=== PATIENT | female | born 1990 | race Two or more races ===

== ENCOUNTER 2023-06-19 21:22 | Inpatient (IN) | payer OTHER ==
[~2023-06-19] VITALS: Ht 165.1 cm; Wt 94.8 kg
[2023-06-19] MEDS ORDERED: AMPICILLIN SODIUM 2,000 MG VIAL IV STA (21:53)
[2023-06-19] MEDS ORDERED: PRENATAL TABLE1 EAC1 PO (22:02)
[2023-06-20] MEDS ORDERED: AMPICILLIN SODIUM 1,000 MG VIAL IV SCH (01:00)
[2023-06-20] MEDS ORDERED: OXYTOCIN 20 UNITS/500ML RL PIGGYBAG IV ONE (06:18)
[2023-06-20] MEDS ORDERED: OXYTOCIN 500 ML IV SCH (07:00)
[2023-06-20] MEDS ORDERED: RINGERS SOLUTION,LACTATED 1,000 ML IV SCH (07:00)
[2023-06-20] MEDS ORDERED: PROMETHAZINE HCL 25 MG/ML AMPUL IV STA (07:41)
[2023-06-20] MEDS ORDERED: MEPERIDINE HCL/PF 50 MG/ML VIAL IV STA (07:41)
[2023-06-20] MEDS ORDERED: PROMETHAZINE HCL 25 MG/ML AMPUL IV ONE (12:15)
[2023-06-20] MEDS ORDERED: MEPERIDINE HCL/PF 50 MG/ML VIAL IV ONE (12:15)
[2023-06-20] MEDS ORDERED: CARBOPROST TROMETHAMINE 250 MCG/ML AMPUL IM ONE ×2 (17:59→22:45)
[2023-06-20] MEDS ORDERED: METHYLERGONOVINE MALEATE 0.2 MG/ML AMPUL ONE (17:59)
[2023-06-20] MEDS ORDERED: ACETAMINOPHEN 325 MG TABLET PO PRN (18:45)
[2023-06-20] MEDS ORDERED: OxyCODONE HCL/APAP UD (PERCOCET) PO PRN (18:45)
[2023-06-20] MEDS ORDERED: OXYTOCIN 20 UNITS/1000ML RL PIGGYBAG IV ONE (18:45)
[2023-06-20] MEDS ORDERED: CHLORHEXIDINE GLUCONATE 120 ML BOTTLE TOP ONE (18:45)
[2023-06-20] MEDS ORDERED: ERYTHROMYCIN BASE 1 GM TUBE OP ONE (18:45)
[2023-06-20] MEDS ORDERED: LIDOCAINE HCL 1% 200MG/20ML VIAL IJ ONE (18:45)
[2023-06-20] MEDS ORDERED: METHYLERGONOVINE MALEATE 0.2 MG/ML AMPUL IM ONE (22:45)
[2023-06-21 02:20] LABS: HEMATOCRIT 36.8 % (36.0-45.00); HEMOGLOBIN 12.4 g/dL (12.0-15.00); MEAN CELL VOLUME 86.8 fL (80.00-100.00); MEAN CORPUSCULAR HEMOGLOBIN 29.2 pg (27.00-32.0); MEAN CORPUSCULAR HGB CONC 33.7 g/dl (32.0-36.0); PLATELET COUNT 180 K/uL (150-450); RED BLOOD COUNT 4.24 M/uL (4.00-6.00); RED CELL DISTRIBUTION WIDTH 14.4 % (11.5-14.5)
[2023-06-21] MEDS ORDERED: BENZOCAINE/MENTHOL 90 ML BOTTLE TOP SCH (09:00)
[2023-06-21] MEDS ORDERED: DOCUSATE SODIUM 100MG CAP PO SCH (09:00)
[2023-06-21] MEDS ORDERED: HYDROCORTISONE 2.5% 30 GM TUBE RECTAL SCH (09:00)
== END 2023-06-23 18:06 | disposition home or self-care (01) | DRG 768 ==
LOC: LDR 21:22 → EDUNIT# 06-20 13:15 → OB/GYN 06-20 17:00
PROVIDERS: ADMIT Specialist; ATTEND Specialist
PROC: 4A1HXCZ Monitoring of Products of Conception, Cardiac Rate, External Approach (ICD-10-PCS; 2023-06-19)
PROC: 10D07Z6 Extraction of Products of Conception, Vacuum, Via Natural or Artificial Opening (ICD-10-PCS; principal; 2023-06-20)
PROC: 0DQP0ZZ Repair Rectum, Open Approach (ICD-10-PCS; 2023-06-20)
PROC: 0UQG7ZZ Repair Vagina, Via Natural or Artificial Opening (ICD-10-PCS; 2023-06-20)
PROC: 0W8NXZZ Division of Female Perineum, External Approach (ICD-10-PCS; 2023-06-20)
DX: O70.3 Fourth degree perineal laceration during delivery (principal); Z37.0 Single live birth; O66.5 Attempted application of vacuum extractor and forceps; Z3A.38 38 weeks gestation of pregnancy; Z20.822 Contact with and (suspected) exposure to COVID-19